=== PATIENT | male | born 1940 | race Caucasian/White ===

== ENCOUNTER 2019-10-02 12:34 | Outpatient (CLI) | payer OTHER ==
[2019-10-02] MEDS ORDERED: LUPRON INJ (13:11)
[2019-10-02] MEDS ORDERED: OMEP40CA42 PO (13:11)
[2019-10-02] MEDS ORDERED: CITA20TA6 PO (13:11)
[2019-10-02] MEDS ORDERED: ATOR20TA37 PO (13:11)
[2019-10-02 14:05] LABS: MICROSCOPIC NOT IND
[2019-10-02 14:15] LABS: BASOPHILS # (AUTO) 0.04 x10^3/uL (0-0.1); BASOPHILS % (AUTO) 1 % (0-1); EOSINOPHILS # (AUTO) 0.15 x10^3/uL (0-0.4); EOSINOPHILS % (AUTO) 2 % (1-7); LYMPHOCYTES # (AUTO) 1.22 x10^3/uL (1-3.4); LYMPHOCYTES % (AUTO) 15 % (22-44); MD NO; MEAN CORPUSCULAR HEMOGLOBIN 32.1 pg (27.5-34.5); MEAN CORPUSCULAR HGB CONC 32.9 g/dL (33.2-36.2); MEAN CORPUSCULAR VOLUME 97.7 fL (81-97); MEAN PLATELET VOLUME 8.1 fL (7.4-10.4); MONOCYTES # (AUTO) 0.88 x10^3/uL (0.2-0.8); MONOCYTES % (AUTO) 11 % (2-9); NEUTROPHILS % (AUTO) 73 % (42-75); PLATELET COUNT 182 x10^3/uL (130-400); RED BLOOD COUNT 4.75 x10^6/uL (4.38-5.82); RED CELL DISTRIBUTION WIDTH 14.1 % (9.4-14.8)
[2019-10-02 14:24] LABS: ANION GAP 4 mmol/L (5-15); CALCIUM 9.7 mg/dL (8.5-10.1); CHLORIDE 109 mmol/L (98-107); CREATININE 0.88 mg/dL (0.7-1.3)
[2019-10-02 14:49] LABS: PROTHROMBIN TIME 10.6 Seconds (9.6-11.5)
== END 2019-10-02 23:59 | disposition home or self-care (01) ==
LOC: STAR 12:34
PROVIDERS: ATTEND Neurological Surgery
DX: Z01.818 Encounter for other preprocedural examination (principal); M48.061 Spinal stenosis, lumbar region without neurogenic claudication; M79.604 Pain in right leg; M79.605 Pain in left leg
CPT/HCPCS: 36415; 71046; 80048; 81003; 85025; 85610; 85730; 93005

== ENCOUNTER 2019-10-07 05:56 | Inpatient (IN) | payer OTHER ==
[~2019-10-07] VITALS: Ht 170.2 cm; Wt 87.2 kg
[~2019-10-07 05:56] MED LIST: ATOR20TA37 PO; CITA20TA6 PO; LUPRON INJ; OMEP40CA42 PO
[2019-10-07] MEDS ORDERED: BUPIVACAINE/PF-EPI 0.25% 1:200K ONE (06:13)
[2019-10-07] MEDS ORDERED: BUPIVACAINE/EPI 0.5% 1:200K ONE (06:13)
[2019-10-07] MEDS ORDERED: BACITRACIN 50,000 UNIT ONE (06:13)
[2019-10-07] MEDS ORDERED: LACTATED RINGERS 1,000 ML IV SCH (07:24)
[2019-10-07 07:28] VITALS: BP 121/78
[2019-10-07] MEDS ORDERED: CHLORHEXIDINE 15 ML UDC MM ONE (07:30)
[2019-10-07] MEDS ORDERED: CHLORHEXIDINE 15 ML UDC ONE (07:35)
[2019-10-07] MEDS ORDERED: ROCURONIUM 10MG/ML,5ML ONE (07:42)
[2019-10-07] MEDS ORDERED: PROPOFOL 10 MG/ML, 20ML ONE (07:42)
[2019-10-07] MEDS ORDERED: MIDAZOLAM 1 MG/ML, 2ML ONE (07:42)
[2019-10-07] MEDS ORDERED: ONDANSETRON 2MG/ML, 2ML ONE (07:42)
[2019-10-07] MEDS ORDERED: DEXAMETHASONE 4 MG/ML, 1ML ONE (07:42)
[2019-10-07] MEDS ORDERED: FENTANYL PF 100 MCG/2ML ONE ×2 (07:42→11:26)
[2019-10-07] MEDS ORDERED: SUCCINYLCHOLINE 20 MG/ML, 10ML ONE (07:42)
[2019-10-07] MEDS ORDERED: CEFAZOLIN 1,000 MG ONE (07:42)
[2019-10-07] MEDS ORDERED: GLYCOPYRROLATE 0.2MG/1ML, 5ML ONE (07:42)
[2019-10-07] MEDS ORDERED: NEOSTIGMINE 1 MG/ML, 10ML ONE (07:42)
[2019-10-07] MEDS ORDERED: GABAPENTIN 300 MG CAPSULE ONE (08:55)
[2019-10-07] MEDS ORDERED: ACETAMINOPHEN 500 MG TABLET ONE (08:55)
[2019-10-07] MEDS ORDERED: ACETAMINOPHEN 500 MG TABLET PO ONE ×2 (09:00→09:30)
[2019-10-07] MEDS ORDERED: SUGAMMADEX 200 MG/2 ML IVPush ONE (09:16)
[2019-10-07] MEDS ORDERED: GABAPENTIN 300 MG CAPSULE PO ONE ×2 (09:30)
[2019-10-07] MEDS ORDERED: HYDROmorphone 1 MG/ML, 1ML INJ IVPush PRN ×2 (10:00→11:00)
[2019-10-07] MEDS ORDERED: FENTANYL PF 100 MCG/2ML IV PRN (10:00)
[2019-10-07] MEDS ORDERED: PROMETHAZINE 25 MG/ML, 1ML IVPush PRN (10:00)
[2019-10-07] MEDS ORDERED: OXYcodone 5 MG/5 ML ORAL.SOL UDC PO PRN (10:00)
[2019-10-07] MEDS ORDERED: LORazepam 2 MG/ML, 1ML IVPush PRN (10:00)
[2019-10-07] MEDS ORDERED: MEPERIDINE/PF 25MG/0.5ML IVPush PRN (10:00)
[2019-10-07] MEDS ORDERED: TIZANIDINE 4MG TABLET PO PRN (11:00)
[2019-10-07] MEDS ORDERED: MAGNESIUM HYDROXIDE 8%, 30ML UDC PO PRN (11:00)
[2019-10-07] MEDS ORDERED: PHARMACY MAY ADJ FOR RENAL FX MC PRN (11:00)
[2019-10-07] MEDS ORDERED: HYDROcodone/APAP 10/325 MG TABLET PO PRN (11:00)
[2019-10-07] MEDS ORDERED: METHOCARBAMOL 1,000 MG in DEXTROSE 5% 100 ML IV ONE (11:00)
[2019-10-07] MEDS ORDERED: PROMETHAZINE 25 MG/ML, 1ML IM PRN (11:00)
[2019-10-07] MEDS ORDERED: CEFAZOLIN PMX 1GM/50ML 50 ML IVPB SCH (11:00)
[2019-10-07] MEDS ORDERED: ONDANSETRON 2MG/ML, 2ML IVPush PRN (11:00)
[2019-10-07] MEDS ORDERED: MEPERIDINE/PF 100 MG/ML IM PRN (11:00)
[2019-10-07] MEDS ORDERED: HYDROmorphone PCA 30 MG/30 ML IV PRN (11:00)
[2019-10-07] MEDS ORDERED: BISACODYL 10 MG SUPP PR PRN (11:00)
[2019-10-07] MEDS ORDERED: OXYcodone 5 MG/5 ML ORAL.SOL UDC ONE (11:26)
[2019-10-07 13:00] VITALS: BP 99/63
[2019-10-07] MEDS: CEFAZOLIN PMX 1GM/50ML 50 ML IVPB SCH (17:59)
[2019-10-07 20:15] VITALS: BP 107/63
[2019-10-07] MEDS: NS + 20MEQ KCL 1,000 ML IV SCH (21:21)
[2019-10-07] MEDS: ATORVASTATIN 20 MG TABLET PO SCH (21:21)
[2019-10-07] MEDS: SODIUM CHLORIDE FLUSH 10ML SYR IVF SCH (21:22)
[2019-10-07] MEDS: DIPHENHYDRAMINE 50 MG/ML, 1ML IVPush PRN (22:35)
[2019-10-08 00:05] VITALS: BP 100/60
[2019-10-08] MEDS: CEFAZOLIN PMX 1GM/50ML 50 ML IVPB SCH (01:38)
[2019-10-08 03:31] VITALS: BP 105/60
[2019-10-08] MEDS: DIPHENHYDRAMINE 50 MG/ML, 1ML IVPush PRN (04:02)
[2019-10-08] MEDS: OMEPRAZOLE 20 MG CAPSULE.DR PO SCH (06:16)
[2019-10-08] MEDS: NS + 20MEQ KCL 1,000 ML IV SCH ×2 (06:26→17:00)
[2019-10-08] MEDS: OXYcodone/APAP 5/325MG TABLET PO PRN ×4 (06:37→22:34)
[2019-10-08 07:11] VITALS: BP 100/57
[2019-10-08] MEDS: SENNA/DOCUSATE TABLET PO SCH (08:51)
[2019-10-08] MEDS: SODIUM CHLORIDE FLUSH 10ML SYR IVF SCH ×2 (08:51→20:22)
[2019-10-08] MEDS: CITALOPRAM 20 MG TABLET PO SCH (08:51)
[2019-10-08 14:00] VITALS: BP 142/86
[2019-10-08 19:11] VITALS: BP 115/63
[2019-10-08] MEDS: ATORVASTATIN 20 MG TABLET PO SCH (20:25)
[2019-10-09 00:47] VITALS: BP 105/58
[2019-10-09] MEDS: OXYcodone/APAP 5/325MG TABLET PO PRN ×5 (02:32→21:01)
[2019-10-09] MEDS: OMEPRAZOLE 20 MG CAPSULE.DR PO SCH (05:37)
[2019-10-09] MEDS: NS + 20MEQ KCL 1,000 ML IV SCH (05:50)
[2019-10-09 06:10] VITALS: BP 102/60
[2019-10-09] MEDS: CITALOPRAM 20 MG TABLET PO SCH (09:43)
[2019-10-09] MEDS: SODIUM CHLORIDE FLUSH 10ML SYR IVF SCH ×2 (09:43→21:02)
[2019-10-09] MEDS: SENNA/DOCUSATE TABLET PO SCH (09:45)
[2019-10-09 12:29] VITALS: BP 109/56
[2019-10-09] MEDS ORDERED: CALCIUM CARBONATE 500 MG TAB.CHEW PO PRN (13:00)
[2019-10-09] MEDS: TIZANIDINE 4MG TABLET PO PRN (16:45)
[2019-10-09 18:37] VITALS: BP 113/60
[2019-10-09] MEDS: ATORVASTATIN 20 MG TABLET PO SCH (21:01)
[2019-10-10 00:46] VITALS: BP 132/57
[2019-10-10] MEDS: TIZANIDINE 4MG TABLET PO PRN ×2 (01:46→20:15)
[2019-10-10] MEDS: OXYcodone/APAP 5/325MG TABLET PO PRN ×2 (01:46→08:36)
[2019-10-10] MEDS: OMEPRAZOLE 20 MG CAPSULE.DR PO SCH (05:33)
[2019-10-10 07:31] VITALS: BP 109/63
[2019-10-10] MEDS: CITALOPRAM 20 MG TABLET PO SCH (08:35)
[2019-10-10] MEDS: SENNA/DOCUSATE TABLET PO SCH (08:35)
[2019-10-10] MEDS: SODIUM CHLORIDE FLUSH 10ML SYR IVF SCH ×2 (08:36→20:17)
[2019-10-10 13:08] VITALS: BP 137/72
[2019-10-10] MEDS: HYDROcodone/APAP 10/325 MG TABLET PO PRN ×2 (14:31→20:17)
[2019-10-10 19:09] VITALS: BP 134/75
[2019-10-10] MEDS: ATORVASTATIN 20 MG TABLET PO SCH (20:13)
[2019-10-11 02:08] VITALS: BP 108/66
[2019-10-11] MEDS: HYDROcodone/APAP 10/325 MG TABLET PO PRN ×5 (02:36→23:24)
[2019-10-11] MEDS: OMEPRAZOLE 20 MG CAPSULE.DR PO SCH (06:27)
[2019-10-11 07:19] VITALS: BP 106/68
[2019-10-11] MEDS ORDERED: HYDR-3245 PO (08:18)
[2019-10-11] MEDS ORDERED: TIZA4TAB2 PO (08:18)
[2019-10-11] MEDS: SENNA/DOCUSATE TABLET PO SCH (09:00)
[2019-10-11] MEDS: SODIUM CHLORIDE FLUSH 10ML SYR IVF SCH ×3 (09:00→19:59)
[2019-10-11] MEDS: CITALOPRAM 20 MG TABLET PO SCH (09:00)
[2019-10-11 12:33] VITALS: BP 127/74
[2019-10-11 15:28] VITALS: BP 133/74
--- NOTE | 2019-10-11 15:47 | NUR ---
MARILU KRAMER I - Fall Risk Medications present and NOT receiving anticoagulants. Signed: 10/11/19 at 1548 by Demetrius WELLS
[2019-10-11 19:31] VITALS: BP 109/64
[2019-10-11] MEDS: ATORVASTATIN 20 MG TABLET PO SCH (19:56)
[2019-10-12 01:23] VITALS: BP 124/70
[2019-10-12] MEDS: HYDROcodone/APAP 10/325 MG TABLET PO PRN ×3 (05:41→20:37)
[2019-10-12] MEDS: OMEPRAZOLE 20 MG CAPSULE.DR PO SCH (05:41)
[2019-10-12 08:12] VITALS: BP 105/66
[2019-10-12] MEDS: SODIUM CHLORIDE FLUSH 10ML SYR IVF SCH ×3 (09:00→21:00)
[2019-10-12] MEDS: CITALOPRAM 20 MG TABLET PO SCH (09:16)
[2019-10-12] MEDS: SENNA/DOCUSATE TABLET PO SCH (09:16)
[2019-10-12 13:20] VITALS: BP 113/69
[2019-10-12 19:59] VITALS: BP 110/66
[2019-10-12] MEDS: ATORVASTATIN 20 MG TABLET PO SCH (20:35)
[2019-10-13] MEDS: HYDROcodone/APAP 10/325 MG TABLET PO PRN ×5 (00:37→22:29)
[2019-10-13 00:53] VITALS: BP 102/63
[2019-10-13] MEDS: OMEPRAZOLE 20 MG CAPSULE.DR PO SCH (05:59)
[2019-10-13 07:48] VITALS: BP 100/62
[2019-10-13] MEDS: SODIUM CHLORIDE FLUSH 10ML SYR IVF SCH ×2 (09:00→21:00)
[2019-10-13] MEDS: SENNA/DOCUSATE TABLET PO SCH (09:00)
[2019-10-13] MEDS: CITALOPRAM 20 MG TABLET PO SCH (09:27)
[2019-10-13 14:12] VITALS: BP 98/60
[2019-10-13 19:12] VITALS: BP 120/74
[2019-10-13] MEDS: ATORVASTATIN 20 MG TABLET PO SCH (21:05)
[2019-10-14 00:53] VITALS: BP 116/71
[2019-10-14] MEDS: HYDROcodone/APAP 10/325 MG TABLET PO PRN (02:35)
[2019-10-14] MEDS: OMEPRAZOLE 20 MG CAPSULE.DR PO SCH (05:51)
[2019-10-14 07:19] VITALS: BP 133/71
[2019-10-14] MEDS: SENNA/DOCUSATE TABLET PO SCH (08:38)
[2019-10-14] MEDS: SODIUM CHLORIDE FLUSH 10ML SYR IVF SCH (08:38)
[2019-10-14] MEDS: CITALOPRAM 20 MG TABLET PO SCH (08:38)
== END 2019-10-14 12:40 | disposition home health service (06) | DRG 517 ==
LOC: OUT 05:56 → ORIP 10:48 → OBSVTOIN 10:48 → 3N 12:41 → 4NE 10-10 18:50 → DCLOUNGE 10-14 12:34
PROVIDERS: ADMIT Neurological Surgery; ATTEND Neurological Surgery
PROC: 01NR0ZZ Release Sacral Nerve, Open Approach (ICD-10-PCS; 2019-10-07)
PROC: 01NB0ZZ Release Lumbar Nerve, Open Approach (ICD-10-PCS; principal; 2019-10-07 09:00)
DX: M48.062 Spinal stenosis, lumbar region with neurogenic claudication (principal); Z20.828 Contact with and (suspected) exposure to other viral communicable diseases
CPT/HCPCS: 36415; 72100; 87635; G0378; J0690; J1100; J1170; J2250; J2405; J2704; J2710; J3010; J3480; J0330; J1200; J2800; J7120